=== PATIENT | female | born 1995 | race Two or more races ===

== ENCOUNTER 2016-09-27 00:40 | Inpatient (IN) | payer MEDICAID ==
[~2016-09-27 00:40] MED LIST: AMOXICILLIN500 M1 PO; MOTRIN600 MG PO; NO MEDS; NORCO 5-325 TA1 EACH PO; NORCO 5/325 TAB1 TAB PO; PEN-VEE K500 MG PO; PRENATAL CAPLE1 EACH PO; TAMIFLU75 MG/CAP PO
[2016-09-27 02:33] LABS: BASO % 0.1 % (0-2); EOS % 0.3 % (0-7); EOSINOPHIL ABSOLUTE COUNT 0.1 tho/cmm (0.0-0.7); HGB-HEMOGLOBIN 10.4 gm/dl (12.0-15.5); IMMATURE GRANULOCYTES ABSOLUTE 0.05 tho/cmm (0-0.03); IMMATURE GRANULOCYTES PERCENT 0.3 % (0-0.3); LYMPH ABSOLUTE COUNT 1.5 tho/cmm (0.8-4.5); MCH (MEAN CORPUSCULAR HGB) 22.7 pg (28.0-32.0); MCHC MEAN CORPUSCULAR HGB CONC 31.5 % (32.0-36.0); MCV (MEAN CELL VOLUME) 71.9 fl (82.0-96.0); MEAN PLATELET VOLUME 9.7 cmc (9.4-12.4); MONO % 7.2 % (0-12); MONOCYTE ABSOLUTE COUNT 1.1 tho/cmm (0.0-1.2); NEUTROPHILS % 82.1 % (40-80); PLATELET COUNT 214 tho/cmm (150-450); RED BLOOD COUNT 4.59 mil/cmm (4.00-5.20); RED CELL DISTRIBUTION WIDTH 14.9 % (12.4-16.4); WHITE BLOOD COUNT 14.6 tho/cmm (4.0-10.0)
[2016-09-28 07:49] LABS: BASO % 0.2 % (0-2); EOS % 1.4 % (0-7); EOSINOPHIL ABSOLUTE COUNT 0.2 tho/cmm (0.0-0.7); HCT-HEMATOCRIT 30.2 % (34.0-49.0); HGB-HEMOGLOBIN 9.4 gm/dl (12.0-15.5); IMMATURE GRANULOCYTES ABSOLUTE 0.08 tho/cmm (0-0.03); IMMATURE GRANULOCYTES PERCENT 0.5 % (0-0.3); LYMPH % 18.5 % (20-45); LYMPH ABSOLUTE COUNT 3.1 tho/cmm (0.8-4.5); MCH (MEAN CORPUSCULAR HGB) 22.2 pg (28.0-32.0); MCHC MEAN CORPUSCULAR HGB CONC 31.1 % (32.0-36.0); MCV (MEAN CELL VOLUME) 71.4 fl (82.0-96.0); MEAN PLATELET VOLUME 9.5 cmc (9.4-12.4); MONO % 6.7 % (0-12); MONOCYTE ABSOLUTE COUNT 1.1 tho/cmm (0.0-1.2); NEUTROPHIL ABSOLUTE COUNT 12.2 tho/cmm (1.6-8.0); NEUTROPHIL-AUTOMATED 12.2 tho/cmm (1.6-8.0); NEUTROPHILS % 72.7 % (40-80); PLATELET COUNT 206 tho/cmm (150-450); RED BLOOD COUNT 4.23 mil/cmm (4.00-5.20); RED CELL DISTRIBUTION WIDTH 15.1 % (12.4-16.4); WHITE BLOOD COUNT 16.8 tho/cmm (4.0-10.0)
[2016-09-29] MEDS ORDERED: IBUPROFEN800 M1 PO (12:19)
[2016-09-29] MEDS ORDERED: NORCO 5-325 TA1 EACH PO (12:20)
== END 2016-09-29 13:25 | DRG 775 ==
LOC: LDR 00:40 → OBGD 15:13
PROVIDERS: Obstetrics & Gynecology; ADMIT Obstetrics & Gynecology
PROC: 10E0XZZ Delivery of Products of Conception, External Approach (ICD-10-PCS; principal; 2016-09-27)
PROC: 0KQM0ZZ Repair Perineum Muscle, Open Approach (ICD-10-PCS; 2016-09-27)
PROC: 10907ZC Drainage of Amniotic Fluid, Therapeutic from Products of Conception, Via Natural or Artificial Opening (ICD-10-PCS; 2016-09-27)
DX: O99.52 Diseases of the respiratory system complicating childbirth (principal); J02.0 Streptococcal pharyngitis; J10.1 Influenza due to other identified influenza virus with other respiratory manifestations; O70.1 Second degree perineal laceration during delivery; Z3A.39 39 weeks gestation of pregnancy; Z37.0 Single live birth; O99.02 Anemia complicating childbirth
CPT/HCPCS: J2590; J3010

== ENCOUNTER 2016-12-02 15:42 | Emergency (ER) | payer MEDICAID ==
[~2016-12-02 15:42] MED LIST changes: +IBUPROFEN800 M1 PO
[2016-12-02] MEDS ORDERED: ZYRTEC10 M7 PO (16:24)
[2016-12-02] MEDS ORDERED: CLEOCIN T60 GM TP (16:27)
== END 2016-12-02 16:29 ==
LOC: EDMED 15:42
DX: T50.995A Adverse effect of other drugs, medicaments and biological substances, initial encounter (principal)